=== PATIENT | male | born 1980 | race Caucasian/White ===

== ENCOUNTER 2016-11-24 07:22 | Emergency (ER) | payer OTHER ==
[2016-11-24] MEDS ORDERED: ONDANSETRON 4 MG/2 ML VIAL IVP STA (08:02)
[2016-11-24] MEDS ORDERED: SODIUM CHLORIDE 0.9% 1,000 ML IV ONE (08:02)
[2016-11-24] MEDS ORDERED: KETOROLAC 60 MG/2 ML VIAL IVP STA (08:02)
[2016-11-24] MEDS ORDERED: fentaNYL 100 MCG/2 ML VIAL IVP STA (08:03)
[2016-11-24] MEDS ORDERED: LIDOCAINE VISCOUS 2% 15 ML UDC MM STA (08:03)
[2016-11-24] MEDS ORDERED: MAG HYDROX/AL HYDROX/SIMETH 30 ML UDC PO STA (08:03)
[2016-11-24] MEDS ORDERED: KETOROLAC 30 MG/ML VIAL ONE (08:04)
[2016-11-24] MEDS ORDERED: ONDANSETRON 4 MG/2 ML VIAL ONE (08:05)
[2016-11-24] MEDS ORDERED: fentaNYL 100 MCG/2 ML VIAL ONE (08:05)
[2016-11-24] MEDS ORDERED: LIDOCAINE VISCOUS 2% 15 ML UDC MM ONE (08:20)
[2016-11-24] MEDS ORDERED: MAG HYDROX/AL HYDROX/SIMETH 30 ML UDC ONE (08:20)
== END 2016-11-24 10:33 | disposition home or self-care (01) ==
DX: K29.60 Other gastritis without bleeding (principal); B96.81 Helicobacter pylori [H. pylori] as the cause of diseases classified elsewhere; K80.20 Calculus of gallbladder without cholecystitis without obstruction
CPT/HCPCS: 36415; 76705; 80053; 83690; 85025; 87339; 96361; 96374; 96375; 99283; 99284; A9270

== ENCOUNTER 2017-01-10 19:54 | Outpatient (CLI) | payer OTHER | END 2017-01-10 19:55 | disposition home or self-care (01) | DX: K80.50 Calculus of bile duct without cholangitis or cholecystitis without obstruction (principal) ==

== ENCOUNTER 2017-01-24 10:40 | Outpatient (CLI) | payer OTHER | END 2017-01-24 10:41 | disposition home or self-care (01) | DX: K80.50 Calculus of bile duct without cholangitis or cholecystitis without obstruction (principal) ==

== ENCOUNTER 2017-02-04 05:35 | Day surgery (SDC) | payer OTHER ==
[2017-02-04] MEDS ORDERED: ceFAZolin 2 GM/50 ML 50 ML IV ONE (06:28)
[2017-02-04] MEDS ORDERED: LACTATED RINGERS 1,000 ML IV ONE (07:09)
[2017-02-04] MEDS ORDERED: SUCCINYLCHOLINE 200 MG/10 ML VIAL IVP ONE (07:20)
[2017-02-04] MEDS ORDERED: DEXAMETHASONE 4 MG/ML VIAL IVP ONE (07:20)
[2017-02-04] MEDS ORDERED: MIDAZOLAM 2 MG/2 ML VIAL IVP ONE (07:20)
[2017-02-04] MEDS ORDERED: FENT EP ONE (07:20)
[2017-02-04] MEDS ORDERED: KETOROLAC 30 MG/ML VIAL IVP ONE (07:20)
[2017-02-04] MEDS ORDERED: ONDANSETRON 4 MG/2 ML VIAL IVP ONE (07:20)
[2017-02-04] MEDS ORDERED: NEOSTIGMINE 1 MG/1 ML 10 ML MDV IVP ONE (07:20)
[2017-02-04] MEDS ORDERED: GLYCOPYRROLATE 1 MG/5 ML VIAL IVP ONE (07:20)
[2017-02-04] MEDS ORDERED: KETAMINE 500 MG/10 ML VIAL IVP ONE (07:20)
[2017-02-04] MEDS ORDERED: ROCURONIUM 50 MG/5 ML VIAL IVP ONE (07:20)
[2017-02-04] MEDS ORDERED: PROPOFOL 200 MG/20 ML VIAL IVP ONE (07:20)
[2017-02-04] MEDS ORDERED: BUPIV EP ONE (07:20)
[2017-02-04] MEDS ORDERED: LIDOCAINE-MPF 2% 5 ML VIAL IM ONE (07:20)
[2017-02-04] MEDS ORDERED: BUPIVACAINE 0.5%-EPI 1:200000 PF 30 ML VIAL SUBQ ONE (08:00)
[2017-02-04] MEDS: HYDROmorphone 1 MG/ML SYRINGE ONE ×2 (09:36→09:49)
[2017-02-04] MEDS ORDERED: oxyCOD/ACETAMIN 5 MG/325 MG TABLET PO ONE (10:14)
[2017-02-04 10:48] VITALS: BP 137/83
--- NOTE | 2017-02-04 12:21 | OPERATIVE REPORT ---
DATE OF SURGERY: 02/04/2017 00:00:00 SURGEON: Magi Helms MD. PREOPERATIVE DIAGNOSIS: Biliary colic. POSTOPERATIVE DIAGNOSES: Biliary colic. INDICATION FOR PROCEDURE: This is a 36-year-old male with recurrent biliary colic and slightly elevat ed transaminases with a normal bilirubin who presents for elective cholecystectomy. FINDINGS: After obtaining informed consent from the patient, he was brought into the operating room a nd positioned on the operating table in a supine position, taking note of pressure points. He was int ubated by Anesthesia, and 2 grams of Ancef were administered. He was prepped and draped in the usual sterile fashion and a time-out was taken according to protocol. An infraumbilical 1 cm incision was c reated and deepened down to the abdominal fascia. This was grasped and elevated, and the Veress needl e inserted. The abdominal cavity was insufflated. Using the 5 mm Optiview trocar, the abdominal cavit y was entered in the epigastric region to the right of the midline. The Veress needle was then exchan ged for a 12 mm port and 2 additional 5 mm ports were placed along the right lateral abdominal wall u nder direct visualization. The gallbladder was then grasped and retracted over the dome of the liver. It was not noted to be grossly inflamed. The base of the gallbladder was grasped and retracted media lly exposing the lateral attachments. These were taken down with combination of blunt and cautery dis section. I worked my way medially exposing the cystic duct and artery and the critical view was obtai chaitanya the fatty tissues from these 2 structures. The cystic duct was then clipped with 2 cli ps placed proximally, 1 distally, and divided. The artery was divided in a similar manner. The gallbl adder was then removed from the gallbladder fossa with electrocautery. There was no spillage of bile or stones during the procedure. The gallbladder was placed in the specimen bag and removed through th e umbilical port after having to extend the incision slightly. The gallbladder fossa was inspected fo r any signs of bleeding and hemostasis was noted to be achieved. The umbilical port site was closed w ith a aGurang, 2 interrupted 0 Vicryl sutures, and the abdominal cavity was allowed to desuff late and the ports removed. The skin incisions were closed with 4-0 Monocryl and 30 mL of local anest hetic was utilized. Estimated blood loss was 10 mL. COMPLICATIONS: None. SPECIMENS: Gallbladder. JOB #: [id number] EXT JOB #:[id number]
== END 2017-02-04 05:36 | disposition home or self-care (01) ==
LOC: SDS 05:35
PROVIDERS: ATTEND Surgery
PROC: 0FT44ZZ Resection of Gallbladder, Percutaneous Endoscopic Approach (ICD-10-PCS; principal; 2017-02-04 07:30)
DX: K80.64 Calculus of gallbladder and bile duct with chronic cholecystitis without obstruction (principal); K21.9 Gastro-esophageal reflux disease without esophagitis; A04.8 Other specified bacterial intestinal infections; I10 Essential (primary) hypertension
CPT/HCPCS: 47562; A9270; J0690; J1170; J7120; 88304

== ENCOUNTER 2018-10-10 17:30 | Emergency (ER) | payer OTHER ==
--- NOTE | 2018-10-10 20:12 | ED Physician Documentation ---
PD HPI Fall - Stated complaint Stated Complaint: GLF/NECK AND BACK PAIN - Chief complaint Chief Complaint: Back Pain - History obtained from History obtained from: Patient - History of Present Illness Mechanism of injury: Slipped Fall distance: Standing position Where injury occurred: Street Timing - onset: Yesterday Injury(ies) location: Neck Quality of pain: Pain Associated symptoms: Neck pain. No: LOC, AMS, Amnesia, Weakness, Paresthesias, Nausea / vomiting Symptoms improve with: Rest Worsens with: Movement. No: Palpation Contributing factors: No: Anticoagulated, Intoxicated Recently seen: Not recently seen - Additional information Additional information: presents to ED with daughter who is also registered as ED patient (unrelated c/o). patient slipped on ice and fell backwards yesterday. denies LOC, c/o pain along anterolateral aspects of neck. inadequate relief with ibuprofen Review of Systems Musculoskeletal: reports: Neck pain. denies: Back pain, Extremity pain, Joint pain Neurologic: reports: Reviewed and negative PD PAST MEDICAL HISTORY - Past Medical History Cardiovascular: None Respiratory: None Endocrine/Autoimmune: None GI: None : None HEENT: None Psych: None Musculoskeletal: None Derm: None - Past Surgical History Past Surgical History: Yes General: Cholecystectomy - Present Medications Home Medications: Ambulatory Orders Medication Instructions Recorded Confirmed Cyclobenzaprine [Flexeril] 10 mg PO TID PRN #20 tablet 10/10/18 - Allergies Allergies/Adverse Reactions: Allergies Allergy/AdvReac Type Severity Reaction Status Date / Time No Known Drug Allergies Allergy Verified 10/10/18 17:39 - Social History Does the pt smoke?: No Smoking Status: Never smoker Does the pt drink ETOH?: Yes Does the pt have substance abuse?: No - Immunizations Immunizations are current?: Yes - POLST Patient has POLST: No PD ED PE NORMAL - Vitals Vital signs reviewed: Yes - General General: Alert and oriented X 3, No acute distress, Well developed/nourished - HEENT HEENT: Atraumatic, PERRL, EOMI - Neck Neck: Supple, no meningeal sign, No bony TTP, Other (mild tenderness along sternocleidomastoids bilaterally) Results - Vitals Vitals: Oxygen O2 Source Room air PD MEDICAL DECISION MAKING - ED course Complexity details: considered differential, d/w patient Departure - Departure Disposition: 01 Home, Self Care Clinical Impression: Cervical strain Condition: Good Instructions: ED Sprain Strain Neck Follow-Up: [facility] [Provider Group] Prescriptions: Cyclobenzaprine [Flexeril] 10 mg PO TID PRN #20 tablet PRN Reason: Spasms Comments: Flexeril is a muscle relaxant and will not help directly with pain control. I recommend you take it along with an anti-inflammatory medication (such as ibuprofen or aleve). Discharge Date/Time: 10/10/18 21:05
[2018-10-10] MEDS ORDERED: CYCLOBENZAPRINE 10 MG Prepack 2 PO PRN (20:31)
[2018-10-10] MEDS ORDERED: CYCLOBENZAPRINE 10 MG TABLET PO STA (20:31)
[2018-10-10 21:05] VITALS: BP 148/93
== END 2018-10-10 21:05 | disposition home or self-care (01) ==
LOC: ED 17:30
DX: S16.1XXA Strain of muscle, fascia and tendon at neck level, initial encounter (principal); W00.0XXA Fall on same level due to ice and snow, initial encounter; Y92.410 Unspecified street and highway as the place of occurrence of the external cause
CPT/HCPCS: 99283; A9270

== ENCOUNTER 2019-04-29 20:39 | Emergency (ER) | payer OTHER ==
[2019-04-29 23:20] VITALS: BP 138/87
--- NOTE | 2019-04-29 23:25 | ED Physician Documentation ---
PD HPI WOUND RECHECK - Stated complaint Stated Complaint: HAND SWELLING - Chief complaint Chief Complaint: Wound - Additional information Additional information: This is a 38-year-old male who denies past medical history who presents with hank e swelling and pain in his right thenar eminence. Patient was out doing yard work today, This afternoon he began developing some pain and redness over his thenar eminence. He states that when he moves his thumb he has some pain, but he can flex the remainder of his fingers without any problem. He denies fever, denies any impact or trauma or fall onto the hand. He did not notice any insect sting, bite, or lesions in the area prior to the redness appearing. Review of Systems Constitutional: denies: Fever Skin: reports: Other (erythema over palm) PD PAST MEDICAL HISTORY - Past Medical History Past Medical History: No Cardiovascular: None Respiratory: None Endocrine/Autoimmune: None GI: None : None HEENT: None Psych: None Musculoskeletal: None Derm: None - Past Surgical History Past Surgical History: Yes General: Cholecystectomy - Present Medications Home Medications: Ambulatory Orders Medication Instructions Recorded Confirmed Cephalexin [Keflex] 500 mg PO Q6H #28 capsule 04/29/19 - Allergies Allergies/Adverse Reactions: Allergies Allergy/AdvReac Type Severity Reaction Status Date / Time No Known Drug Allergies Allergy Verified 04/29/19 21:41 - Social History Does the pt smoke?: No Smoking Status: Never smoker Does the pt drink ETOH?: Yes Does the pt have substance abuse?: No - Immunizations Immunizations are current?: Yes - POLST Patient has POLST: No PD ED PE NORMAL - Vitals Vital signs reviewed: Yes - General General: Alert and oriented X 3, No acute distress - Cardiac Cardiac: Other (Well-perfused extremities) - Respiratory Respiratory: No respiratory distress - Abdomen Abdomen: Non distended - Derm Derm: Warm and dry - Extremities Extremities: Other (Over the right thenar eminence there is a 3 cm by 2cm area of mild redness and edema. There are no lesions in this area. It is mildly tender to deep palpation. There is no bony tenderness. Patient able to flex and extend wrist, MCPs, PIP and DIPs of all fingers. Capillary refill is brisk, sensation intact light touch) - Neuro Neuro: Alert and oriented X 3 - Psych Psych: Normal mood, Normal affect Results - Vitals Vitals: Vital Signs - 24 hr 04/29/19 04/29/19 21:38 23:19 Temperature 36.6 C 36.4 C L Heart Rate 75 72 Respiratory 16 16 Rate Blood Pressure 134/99 H 138/87 H O2 Saturation 97 97 Oxygen O2 Source Room air PD MEDICAL DECISION MAKING - ED course Complexity details: considered differential (Contusion, inflammation, cellulitis, insect bite/insect sting) ED course: Patient presents with some redness over his right thenar eminence after doing yard work. The area is mildly red and tender, [id number] ultrasound shows some mild cobblestoning of the superficial tissue, no abscess or other obvious gross abnormality. His hand is neurovascularly intact. No bony tenderness or mechanism to suggest fracture. I discussed with him that this may be some inflammation from his yard work, or may be a mild infection/cellulitis, although he does not have any breaks in his skin or other obvious nidus for infection. No signs of tenosynovitis. The area of redness is marked out, and if he has progression or non-improvement of his symptoms he will start Keflex tomorrow. If his symptoms worsen, for example if he has streaking up his arm, fever, or any other new or concerning symptoms he will return to the emergency department. Patient agreed to this plan and he was discharged home in the care of family Departure - Departure Disposition: 01 Home, Self Care Clinical Impression: Redness and swelling of hand Condition: Good Follow-Up: Your,PCP [Other] (For a recheck if you have any persistent or worsening symptoms) Prescriptions: Cephalexin [Keflex] 500 mg PO Q6H #28 capsule Comments: You were seen today for some redness and swelling on your hand. This may be some irritation to your palm, or may be the beginnings of a mild infection. If the pain and swelling are not improving tomorrow morning, you may start the antibiotic prescribed. If you develop swelling of your fingers, pain with flexion of your fingers, fever, blisters, or any other concerning symptoms please return to the emergency department.
== END 2019-04-29 23:55 | disposition home or self-care (01) ==
LOC: ED 20:39
DX: M79.641 Pain in right hand (principal); M79.89 Other specified soft tissue disorders; L53.9 Erythematous condition, unspecified
CPT/HCPCS: 99282; 99284

== ENCOUNTER 2020-09-28 14:37 | Outpatient (CLI) | payer OTHER ==
[2020-09-28 15:34] VITALS: BP 123/86
--- NOTE | 2020-09-28 15:34 | SLEEP CARE CONSULTATION ---
Information from patient questionnaire entered by Chandler Ch. I have reviewed and concur with the information entered by Chandler Ch. This document represents the service I personally performed and the decisions made by me, Analia Schulte ARNP. History of Present Illness Service Date and Time: 09/28/2020 1437 Reason for Visit: New patient Chief Complaint: reports: Unrefreshed sleep, Snoring, Excessive daytime sleepiness, Observed pauses in breathing, Frequent awakenings at night, Other (Sleeping disorder. Stop breathing while sleeping) Date of Onset: 1 year Usual bedtime: 10 PM Time it takes to fall asleep: 1 hr Snores at night: Yes Observed to quit breathing while asleep: Yes Sleeps alone due to snoring: No Number of times waking at night: 2 - 3 times Reasons for waking at night: reports: Choking, Snoring, Gasping for air Toss, Turn, or Twitch while sleeping: Yes Recalls having dreams: Yes Usually gets out of bed at: 7 AM Feels refreshed in the morning: No Morning headache: Yes (every day in the last few weeks; last till about lunch time) Sleepy or fatigued during the day: Yes Ever fallen asleep while driving: No Takes day naps: Yes (on weekends for 1-2 hours) Dreams during day naps: No Prior sleep studies: Yes Year and Where: 2020 [facility] study Additional HPI information: I had the pleasure of seeing CRISTIAN ALVAREZ today regarding the possibility of him having a sleep disorder. His current complaints are sleeping disorder, snoring, excessive daytime sleepiness, frequent night awakenings and he stops breathing while sleeping. He states that he has to sleep with a fan blowing on his face or he will wake up warm during the night. He states in May or June he had an in lab sleep study at [facility] which showed him to have severe sleep apnea with an average AHI about 63. He was set up to have a titration study in August but this was cancelled due to them not having room to do the study. He did wants to get started on CPAP therapy as soon as possible, so he got a referral here for evaluation. - Parasomnia Symptoms Ever been unable to move upon waking from sleep: No Walks in sleep: No Talks in sleep: Yes (mumble sometimes) Ever acted out dreams in sleep: Yes Ever felt weak in the knees when startled or emotional: No Bothered by creepy, crawly, restless sensations in legs: No Problems with memory or concentration: Yes (forgets things sometimes) Subjective Initial [place] Sleepiness Scale score: 13 (in 2020) Past Medical History Past Medical History: denies: Hypertension (has occasional times with high blood pressure but not consistently enough for treatment), Diabetes, Arrythmia, Anxiety, Depression, Mood disorder, GERD Social History The patient's occupation is a [employer]. Patient is and lives in [place]. Have you smoked in the past 12 months: No Alcohol use: No Caffeine use: Yes Caffeine amount and frequency: 1 drink a day Family History Family history of sleep disordered breathing: Yes (Father) Review of Systems Cardiovascular: reports: high blood pressure Gastrointestinal: reports: heartburn (comes and goes) Psychiatric: reports: depression (some recently) Ear/Nose/Throat: denies: tonsillectomy, wisdom teeth removed (one missing) Endocrine: denies: thyroid disease Immunologic: reports: allergies to food or environment (seasonal) Physical Exam Blood Pressure: 123/86 Cuff size: wrist Heart Rate: 75 O2 Saturation: 97 Height: 5 ft 6 in Weight: 261 lb Body Mass Index: 42.1 BMI Classification: Morbidly Obese Nostrils: patent to airflow Turbinates: swollen Mouth and throat: narrow oropharynx Soft palate: long Uvula visualization: 50% Mallampati Class II Tongue: enlarged in size with teeth arriaza on lateral edges Tonsils: 2+ Chin and jaw: normal size and position Neck: normal w/o lymphadenopathy or thyromegaly Heart: regular rate and rhythm Lungs: clear bilaterally Impression and Plan 1. Suspected Obstructive Sleep Apnea-Hypopnea Syndrome, as previously diagnosed and as suggested by a history of loud and irregular snoring, observed cessation of breath while asleep, gasping or choking in sleep, morning headache, frequent awakening during the night, unrefreshed sleep, cognitive impairment, and excessive daytime sleepiness. Patient had an in lab sleep study around 2019 which he states showed him to be severe at about 63 AHI. We will request a copy of this sleep study to verify this information. If this is accurate, we will start patient on Auto CPAP machine with 4-15 cmH2O. He will follow up with us one month after getting the machine to assess response and compliance. Compliance requirements reviewed with the patient and he voiced understanding. AAS brochure for obstructive sleep apnea-hypopnea syndrome given and reviewed. Risks of drowsy driving discussed in detail and patient advised to avoid long distance driving and to hook puller at the first sign of drowsiness. Patient agreed to plan. * Obtain copy of previous sleep study to verify diagnosis and severity to start APAP trial. * Nasal auto CPAP therapy, pressure at 4-15 cm H2O. * Attempt to lose weight. * Avoid alcohol consumption near bedtime. * Avoid supine sleep until using CPAP. * The patient is again cautioned about driving until sleepiness completely resolves. * Return one month after CPAP obtained. I will assess response to therapy and compliance at that time. Counseling Topics: Weight loss health impact Visit Type: In Office Time Spent with Patient (minutes): 33 Provider Statement: I spent 100% of the Face to Face Visit with the patient with greater than 50% spent counseling the patient and coordination of care.
== END 2020-09-28 14:38 | disposition home or self-care (01) ==
LOC: SC 14:37
PROVIDERS: ATTEND Nurse Practitioner Family
DX: G47.33 Obstructive sleep apnea (adult) (pediatric) (principal); E66.01 Morbid (severe) obesity due to excess calories; Z68.41 Body mass index [BMI] 40.0-44.9, adult
CPT/HCPCS: 99203; 99212

== ENCOUNTER 2020-11-25 14:03 | Outpatient (CLI) | payer OTHER ==
--- NOTE | 2020-11-25 14:18 | SLEEP CARE CONSULTATION ---
Information from patient questionnaire entered by Chandler Ch. I have reviewed and concur with the information entered by Chandler Ch. This document represents the service I personally performed and the decisions made by , Analia Schulte ARNP. History of Present Illness Service Date and Time: 11/25/2020 1403 Previous diagnosis: Severe, Obstructive Sleep Apnea-Hypopnea Syndrome AHI: 58.6 Reason for follow up: first compliance (10/11/20) Equipment type: CPAP Equipment obtained from: [employer] (getting supplies as needed) Mask style: Nasal Mask brand: Respironics (Dreamwear) Backup mask available: Yes (other mask) Last cushion change: last week Prior sleep studies: Yes Year and Where: 2019 [place] [facility] HPI additional information: CRISTIAN ALVAREZ was diagnosed to have severe, AHI 58.6, obstructive sleep apnea-hypopnea syndrome and returns via Telehealth visit today for CPAP therapy first compliance follow-up. CPAP Compliance Data - Data Reviewed with Patient Average duration of nightly device use: 8 h 0 min Compliance rate %: 100 Current pressure setting (cmH2O): 4-15 (median 7.7, avg 10.7, max 11.9) Average residual AHI: 0.7 Subjective Patient concerns: reports: condensation in mask/hose (in mask). denies: aerop hagia, mask discomfort, air blowing in eyes, mask leak noise, nasal congestion, dry mouth, nose, throat, epistaxis, other Observed to snore while using device: No Current pressure setting perceived as: comfortable On therapy, patient: reports: sleeping better, awakening more refreshed, being more awake and alert during the day, more rested overall. denies: drowsiness while driving Initial [place] Sleepiness Scale score: 13 (in 2020) Current [place] Sleepiness Scale score: 5 Allergies and Home Medications Drug allergies reviewed: Yes (NKDA) Home medication list reviewed: Yes (no new medications) Review of Systems Review of systems same as previous: Yes (no changes) Physical Exam Vital signs obtained and entered by: Telehealth visit to reduce exposure during Covid pandemic Height: 5 ft 6 in Impression and Plan 1. Obstructive Sleep Apnea-Hypopnea Syndrome, severe, with excellent treatment compliance and good apnea control. On CPAP therapy, the patient has better sleep quality and is more rested overall. I will adjust his pressure to reflect pressure used to 10-12 cmH2O. Patient has significant improvement of his sleep apnea with the CPAP therapy and is satisfied with his treatment. Patient's apnea severity and rationale for treatment to reduce apnea, improve sleep quality and reduce cardiovascular and cerebrovascular events was reviewed. * Change auto CPAP pressure to 10-12 cmH2O * Notify me if snoring with mask or feeling that the pressure is too much or too little * Attempt to lose weight * Call this office if any problems using CPAP * Return for follow up in 1-2 months, or sooner if concerns arise Counseling Topics: Spare mask, Weight loss health impact Visit Type: Telehealth Video Video Type: VSee Patient Location: Home Location of Provider: Office Patient agrees and consents to this telehealth visit type: Yes Patient agrees to have their insurance billed: Yes Time Spent with Patient (minutes): 15 Provider Statement: I spent 100% of the Telehealth Video Call with the patient with greater than 50% spent counseling the patient and coordination of care.
== END 2020-11-25 14:04 | disposition home or self-care (01) ==
LOC: SC 14:03
PROVIDERS: ATTEND Nurse Practitioner Family
DX: G47.33 Obstructive sleep apnea (adult) (pediatric) (principal)

== ENCOUNTER 2020-12-30 14:36 | Outpatient (CLI) | payer OTHER ==
--- NOTE | 2020-12-30 14:57 | SLEEP CARE CONSULTATION ---
Information from patient questionnaire entered by Andreina Mae. I have reviewed and concur with the information entered by Andreina Mae. This document represents the service I personally performed and the decisions made by , Analia Schlute ARNP. History of Present Illness Service Date and Time: 12/30/2020 1436 Previous diagnosis: Severe, Obstructive Sleep Apnea-Hypopnea Syndrome AHI: 58.6 (in 2019) Reason for follow up: one month (with pressure change) Equipment type: CPAP Equipment obtained from: [employer] (getting supplies as needed) Mask style: Nasal Backup mask available: Yes (other mask) Last cushion change: on Saturday Prior sleep studies: Yes Year and Where: 2019 - [facility] Sleep Type of Sleep Study: Polysomnography HPI additional information: CRISTIAN ALVAREZ was diagnosed to have severe, AHI 58.6, obstructive sleep apnea-hypopnea syndrome and returned today for CPAP therapy one month with pressure change follow-up. CPAP Compliance Data - Data Reviewed with Patient Average duration of nightly device use: 7 hr 12 min Compliance rate %: 90 Current pressure setting (cmH2O): 10-12 Humidity settin Average residual AHI: 0.4 Subjective Missed days of use due to: reports: illness Patient concerns: reports: condensation in mask/hose. denies: aerophagia, mask discomfort, air blowing in eyes, mask leak noise, nasal congestion, dry mouth, nose, throat, epistaxis, other Observed to snore while using device: No Current pressure setting perceived as: comfortable On therapy, patient: reports: sleeping better, awakening more refreshed, being more awake and alert during the day, more rested overall. denies: drowsiness while driving Initial [place] Sleepiness Scale score: 13 (in 2020) Current [place] Sleepiness Scale score: 10 Allergies and Home Medications Home medication list reviewed: Yes (no new meds) Review of Systems Review of systems same as previous: Yes (no changes) Physical Exam Heart Rate: 60 O2 Saturation: 98 Height: 5 ft 6 in Weight: 254 lb Body Mass Index: 41.0 BMI Classification: Morbidly Obese Impression and Plan 1. Obstructive Sleep Apnea-Hypopnea Syndrome, severe, with good treatment compliance and good apnea control. On CPAP therapy, the patient has better sleep quality and is more rested overall. He has significant improvement of his sleep apnea and is satisfied with his treatment. He continues to have headaches, no changes in timing or quality with CPAP use, and he is going to follow up with his primary doctor about them. He has no concerns or issues to address today. Patient's apnea severity and rationale for treatment to reduce apnea, improve sleep quality and reduce cardiovascular and cerebrovascular events was reviewed. * Continue auto CPAP pressure at 10-12 cmH2O * Notify me if snoring with mask or feeling that the pressure is too much or too little * Attempt to lose weight * Call this office if any problems using CPAP * Return for follow up in 3 months, or sooner if concerns arise Counseling Topics: Spare mask, Weight loss health impact Visit Type: In Office Time Spent with Patient (minutes): 11 Provider Statement: I spent 100% of the Face to Face Visit with the patient with greater than 50% spent counseling the patient and coordination of care.
== END 2020-12-30 14:37 | disposition home or self-care (01) ==
LOC: SC 14:36
PROVIDERS: ATTEND Nurse Practitioner Family
DX: G47.33 Obstructive sleep apnea (adult) (pediatric) (principal); E66.01 Morbid (severe) obesity due to excess calories; Z68.41 Body mass index [BMI] 40.0-44.9, adult
CPT/HCPCS: 99212

== ENCOUNTER 2021-04-13 13:52 | Outpatient (CLI) | payer OTHER ==
--- NOTE | 2021-04-13 14:36 | SLEEP CARE CONSULTATION ---
Information from patient questionnaire entered by Andreina Mae. I have reviewed and concur with the information entered by Andreina Mae. This document represents the service I personally performed and the decisions made by , Analia Schulte ARNP. History of Present Illness Service Date and Time: 04/13/2021 1352 Previous diagnosis: Severe, Obstructive Sleep Apnea-Hypopnea Syndrome AHI: 58.6 (in 2019) Reason for follow up: three month Equipment type: CPAP Equipment obtained from: [employer] (last supplies rec'd in October; he needs to call and check on next shipment) Mask style: Nasal Backup mask available: Yes (old mask) Last cushion change: Saturday Prior sleep studies: Yes Year and Where: 2019 - [facility] Sleep Type of Sleep Study: Polysomnography HPI additional information: CRISTIAN ALVAREZ was diagnosed to have severe, AHI 58.6, obstructive sleep apnea-hypopnea syndrome and returned today for CPAP therapy three month follow- up. CPAP Compliance Data - Data Reviewed with Patient Average duration of nightly device use: 7 hr 3 min Compliance rate %: 82 (90 days) Current pressure setting (cmH2O): 10-12 Humidity settin Average residual AHI: 0.4 Subjective Missed days of use due to: reports: family emergency, travel (camping trip with family) Patient concerns: denies: aerophagia, mask discomfort, air blowing in eyes, mask leak noise, condensation in mask/hose, nasal congestion, dry mouth, nose, throat, epistaxis, other Observed to snore while using device: No Current pressure setting perceived as: comfortable On therapy, patient: reports: sleeping better, awakening more refreshed, being more awake and alert during the day, more rested overall. denies: drowsiness while driving Initial [place] Sleepiness Scale score: 13 (in 2020) Current [place] Sleepiness Scale score: 11 Allergies and Home Medications Home medication list reviewed: Yes (Amitriptyline for migraines 1.5 months ago) Review of Systems Review of systems same as previous: Yes (no changes) Physical Exam Heart Rate: 67 O2 Saturation: 95 Height: 5 ft 6 in Weight: 265 lb Body Mass Index: 42.7 BMI Classification: Morbidly Obese Impression and Plan 1. Obstructive Sleep Apnea-Hypopnea Syndrome, severe, with good treatment compliance and excellent apnea control. On CPAP therapy, the patient has better sleep quality and is more rested overall. Patient has had times that he missed using his CPAP due to travel for vacation and family emergency. Patient is satisfied with current therapy and feels the pressure is comfortable. Patient encouraged to lose weight to help reduce apneas and to improve his overall health. He voiced understanding. Patient doing very well and we will follow-up with him in about 6 months. Patient's apnea severity and rationale for treatment to reduce apnea, improve sleep quality and reduce cardiovascular and cerebrovascular events was reviewed. * Continue auto CPAP pressure at 10-12 cmH2O * Notify me if snoring with mask or feeling that the pressure is too much or too little * Attempt to lose weight * Call this office if any problems using CPAP * Return for follow up in 6 months, or sooner if concerns arise Counseling Topics: Spare mask, Weight loss health impact Visit Type: In Office Time Spent with Patient (minutes): 12 Provider Statement: I spent 100% of the Face to Face Visit with the patient with greater than 50% spent counseling the patient and coordination of care.
== END 2021-04-13 13:53 | disposition home or self-care (01) ==
LOC: SC 13:52
PROVIDERS: ATTEND Nurse Practitioner Family
DX: G47.33 Obstructive sleep apnea (adult) (pediatric) (principal); E66.01 Morbid (severe) obesity due to excess calories; Z68.41 Body mass index [BMI] 40.0-44.9, adult
CPT/HCPCS: 99212

== ENCOUNTER 2022-06-29 15:10 | Outpatient (CLI) | payer OTHER ==
--- NOTE | 2022-06-29 15:10 | SLEEP CARE CONSULTATION ---
Information from patient questionnaire entered by Bindu Luna. I have reviewed and concur with the information entered by Bindu Luna. This document represents the service I personally performed and the decisions made by me, Analia Schulte ARNP. History of Present Illness Service Date and Time: 06/29/2022 1500 Previous diagnosis: Severe, Obstructive Sleep Apnea-Hypopnea Syndrome AHI: 58.6 (in 2019) Reason for follow up: annual (last seen 03/2021) Equipment type: CPAP (RESMED) Equipment obtained from: [employer] (getting supplies as needed) Mask style: Nasal Mask brand: Respironics (Dreamwear) Backup mask available: Yes (old mask) Last cushion change: last Saturday Prior sleep studies: Yes Year and Where: [address] [place] [address] Sleep Type of Sleep Study: Polysomnography HPI additional information: CRISTIAN ALVAREZ was diagnosed to have severe, AHI 58.6, obstructive sleep apnea-hypopnea syndrome and returns via video telehealth visit today for CPAP therapy annual follow-up. Sleep Study - Results Type of Sleep Study: Polysomnography Prior sleep studies: Yes Year and Where: [address] [place] [address] Sleep CPAP Compliance Data - Data Reviewed with Patient Average duration of nightly device use: 7HRS, 14MIN Compliance rate %: 93 (12/29/2021-06/26/2022; 175/180 days used) Current pressure setting (cmH2O): 10-12 Average residual AHI: 0.5 Subjective Missed days of use due to: reports: illness, travel Patient concerns: reports: dry mouth, nose, throat (sometimes). denies: aerophagia, mask discomfort, air blowing in eyes, mask leak noise, condensation in mask/hose, nasal congestion, epistaxis Observed to snore while using device: No Current pressure setting perceived as: comfortable On therapy, patient: reports: sleeping better, awakening more refreshed, being more awake and alert during the day, more rested overall. denies: drowsiness while driving Initial [place] Sleepiness Scale score: 13 (in 2020) Current [place] Sleepiness Scale score: 12 (06/29/2022) Allergies and Home Medications Drug allergies reviewed: Yes (NKDA) Home medication list reviewed: Yes (no changes) Review of Systems Review of systems same as previous: Yes (no changes) Physical Exam Vital signs obtained and entered by: [employer] Blood Pressure: 120/80 (per patient ) Height: 5 ft 7 in Weight: 245 lb (pt reported) Body Mass Index: 38.3 BMI Classification: Obese Impression and Plan 1. Obstructive Sleep Apnea-Hypopnea Syndrome, severe, with good treatment compliance and good apnea control. On CPAP therapy, the patient has better sleep quality and is more rested overall. Patient has significant improvement of their sleep apnea and are satisfied with current CPAP therapy. Patient denies significant problems with oral dryness, nasal congestion, epistaxis, skin irritation or aerophagia. Patient's apnea severity and rationale for treatment to reduce apnea, improve sleep quality and reduce cardiovascular and cerebrovascular events was reviewed. 2. Obesity, unspecified. Currently patients BMI is 38.3. Obesity increases the risk of apnea, CPAP pressure requirements and overall health risks especially cardiovascular and diabetes. Thus patient is advised to lose weight. * Continue auto CPAP pressure at 10-12 cmH2O * Update supplies * Notify me if snoring with mask or feeling that the pressure is too much or too little * Attempt to lose weight * Call this office if any problems using CPAP * Return for follow up in 1 year, or sooner if concerns arise Counseling Topics: Spare mask, Weight loss health impact Visit Type: Telehealth Video Video Type: DoximFORVM Patient Location: Home Location of Provider: Office Patient agrees and consents to this telehealth visit type: Yes Patient agrees to have their insurance billed: Yes Time Spent with Patient (minutes): 11 Provider Statement: I spent 100% of the Telehealth Video Call with the patient with greater than 50% spent counseling the patient and coordination of care.
[2022-06-29 15:11] VITALS: BP 120/80
== END 2022-06-29 15:11 | disposition home or self-care (01) ==
LOC: SC 15:10
PROVIDERS: ATTEND Nurse Practitioner Family
DX: G47.33 Obstructive sleep apnea (adult) (pediatric) (principal); E66.9 Obesity, unspecified; Z68.38 Body mass index [BMI] 38.0-38.9, adult

== ENCOUNTER 2023-10-09 09:08 | Outpatient (CLI) | payer OTHER ==
--- NOTE | 2023-10-09 09:31 | Sleep Patient Instructions ---
Sleep Center Visit Summary - Patient Visit Information Reason for Visit: Annual follow-up - Patient Instructions Additional Instructions: You will continue with CPAP therapy with pressure set at 10-12 cmH2O. A supply prescription will be updated with your DME. We encourage you to continue to try to lose weight. Please follow up with the sleep care office in 1 year. - Clinic Information Contact: [facility] [address] [place] [address] [email or web address] T: [phone]
--- NOTE | 2023-10-09 09:34 | SLEEP CARE CONSULTATION ---
Information from patient questionnaire entered by Bindu Luna. I have reviewed and concur with the information entered by Bindu Luna. This document represents the service I personally performed and the decisions made by me, Analia Schulte ARNP. History of Present Illness Service Date and Time: 10/09/2023 0908 Previous diagnosis: Severe, Obstructive Sleep Apnea-Hypopnea Syndrome AHI: 58.6 (in 2019) Reason for follow up: annual (LAST SEEN 06/2022) Equipment type: CPAP (RESMED Airsense 10, s/u 09/2020) Equipment obtained from: [id number] (getting supplies as needed) Mask style: Nasal Mask brand: Respironics (Dreamwear, large cushion) Backup mask available: Yes Last cushion change: 1-2 weeks Prior sleep studies: Yes Year and Where: [address] [place] [address] Sleep Type of Sleep Study: Polysomnography HPI additional information: CRISTIAN ALVAREZ was diagnosed to have severe, AHI 58.6, obstructive sleep apnea-hypopnea syndrome and returned today for CPAP therapy annual follow-up. Sleep Study - Results Type of Sleep Study: Polysomnography Prior sleep studies: Yes Year and Where: [address] [place] [address] Sleep CPAP Compliance Data - Data Reviewed with Patient Average duration of nightly device use: 7 HRS 22 MINS Compliance rate %: 94 (10/08/22-10/07/23; 348/365 days used) Current pressure setting (cmH2O): 10-12 Average residual AHI: 0.5 Central apnea: 0 Obstructive apnea: 0.2 Hypopnea: 0.2 Average large leak: 17.7 L/min Subjective Missed days of use due to: reports: travel (forgot to take CPAP) Patient concerns: reports: condensation in mask/hose (in mask, occasionally), dry mouth, nose, throat (sometimes). denies: aerophagia, mask discomfort, air blowing in eyes, mask leak noise, nasal congestion, epistaxis Observed to snore while using device: No Current pressure setting perceived as: comfortable On therapy, patient: reports: sleeping better, awakening more refreshed, being more awake and alert during the day, more rested overall. denies: drowsiness while driving Initial [place] Sleepiness Scale score: 13 (in 2020) Current [place] Sleepiness Scale score: 8 (10/09/23) Allergies and Home Medications Known drug allergies: No Drug allergies reviewed: Yes Home medication list reviewed: Yes (no changes) Allergy and home medication list: Allergies No Known Drug Allergies Allergy (Verified 10/08/23 14:14) Review of Systems Review of systems same as previous: Yes (NO CHANGE) Physical Exam Vital signs obtained and entered by: BINDU Sanford MA Blood Pressure: 110/70 (LEFT ARM) Cuff size: regular Heart Rate: 62 O2 Saturation: 96 Height: 5 ft 7 in Weight: 272 lb 6.4 oz Weight change since last visit: 27 lb gain Body Mass Index: 42.6 BMI Classification: Morbidly Obese Impression and Plan 1. Obstructive Sleep Apnea-Hypopnea Syndrome, severe, with good treatment compliance and good apnea control. On CPAP therapy, the patient has better sleep quality and is more rested overall. Patient has significant improvement of their sleep apnea and is satisfied with current CPAP therapy. He states sometimes he will get a little condensation in his mask or dry mouth. He says he has it on automatic for the humidity and heated hose and works well most of the time. He has no other issues with using his mask or CPAP machine. Patient's apnea severity and rationale for treatment to reduce apnea, improve sleep quality and reduce cardiovascular and cerebrovascular events was reviewed. 2. Obesity, unspecified. Currently patients BMI is 42.6. He has gained weight Obesity increases the risk of apnea, CPAP pressure requirements and overall health risks especially cardiovascular and diabetes. Thus patient is advised to lose weight. * Continue auto CPAP pressure at 10-12 cmH2O * Update supply prescription * Notify me if snoring with mask or feeling that the pressure is too much or too little * Attempt to lose weight * Call this office if any problems using CPAP * Return for follow up in 12 months, or sooner if concerns arise Counseling Topics: Spare mask, Weight loss health impact Prescriptions: Device supplies Follow up with Sleep Care in: 1 year Visit Type: In Office Time Spent with Patient (minutes): 14 Provider Statement: I spent 100% of the Face to Face Visit with the patient with greater than 50% spent counseling the patient and coordination of care.
[2023-10-09 09:40] VITALS: BP 110/70; O2SAT 96
== END 2023-10-09 09:09 | disposition home or self-care (01) ==
LOC: SC 09:08
PROVIDERS: ATTEND Nurse Practitioner Family
DX: G47.33 Obstructive sleep apnea (adult) (pediatric) (principal); E66.9 Obesity, unspecified; Z68.41 Body mass index [BMI] 40.0-44.9, adult
CPT/HCPCS: 99212